=== PATIENT | female | born 1950 | race Caucasian/White ===

== ENCOUNTER 2021-05-31 15:07 | Emergency (ER) | payer MEDICARE, MEDICAID, SELFPAY ==
--- NOTE | ~2021-05-31 | XR_ITS ---
EXAMINATION: XR knee RT 2V DATE: 05/31/2021 16:27 INDICATION: Right knee pain TECHNIQUE: Two views of the right knee were obtained on three radiographs. COMPARISON: None. FINDINGS: Alignment is normal. No fracture or osteochondral lesion. There is mild tricompartmental os teoarthritis characterized by tiny marginal osteophytes. No joint effusion/synovitis. Soft tissues a re unremarkable. IMPRESSION: 1. No acute osseous abnormality. Reviewed, dictated and finalized at location B.
--- NOTE | 2021-05-31 16:39 | ED.LOWEXIN ---
HPI - Extremity Injury (Lower) General Stated Complaint: knee injury Source: patient and family History of Present Illness HPI Narrative: this is a 70-year-old female that presents with right knee pain posterior after she was walking and heard a pop in her right knee and now she is having a posterior knee pain with no calf discomfort no calf tenderness no calf swelling or redness. Has decreased range of motion in her right knee secondary to pain and inflammation. MD complaint: knee injury Onset (ago): day(s) Injury: Right: knee ( Painful posterior knee after she heard a pop) Place: home Severity: moderate Severity scale (1-10): 6 Relieving factors: NSAID Exacerbating factors: weight bearing and movement Context: walking Review of Systems Review of Systems: All systems reviewed & are unremarkable except as noted in HPI and below [facility] Past Medical History Medical History (Updated 05/31/21 @ 16:46 by Jonathan Flores MD) HTN (hypertension) Patient denies medical problems Exam Const: General: no acute distress Orientation/consciousness: patient oriented x3 HENMT: Head: normal to inspection Eyes: Conjunctivae: conjunctivae normal Pupils: Equal, round and reactive pupils present Neck: Neck: normal visual inspection, no lymphadenopathy and no meningeal signs Chest: Chest palpation & inspection: normal inspection of the chest Resp: Effort & Inspection: normal respiratory effort Auscultation: clear to auscultation bilaterally Cardio: Rate: regular rate GI: GI Palp: Yes Soft to palpation : General: Yes no CVA tenderness Urinary Catheter: Urinary Catheter: patent and draining Skin: General skin exam: normal color Rashes: no rashes Neuro: General: patient oriented x3 Extrem: Knee images: 1. tenderness posterior knee with palpation with no calf pain or swelling after she heard a pop. Course Course Emergency Course: X-rays reviewed with patient and family and Toradol was given with some improvement of her discomfort. Critical Care Time Critical Care Time Critical Care Time: No Discharge Plan Discharge Clinical Impression: Strain of knee and leg, right Qualifiers: Encounter type: initial encounter Qualified Code(s): S86.911A - Strain of unspecified muscle(s) and tendon(s) at lower leg level, right leg, initial encounter Patient Disposition: Home, Self-Care Condition: Stable Instructions: Antibiotic Form, Knee Pain (ED), Knee Sprain (ED) Additional Instructions: advised to rest, elevate leg while rest continue Ralph bandage, can take ibuprofen 600mg twice daily with meals times approximately 5 days and follow up with primary care physician for possible MRI. Follow-up/Referrals: Roly Lynch MD [Primary Care Provider] - Time of Disposition: 16:48
[2021-05-31] MEDS: KETOROLAC 30 MG/ML VIAL (*BKC) IM (16:57)
[2021-05-31 17:02] VITALS: BP 125/55; PULSE 75; RESP 20; TEMP 36.7; O2SAT 95
[2021-05-31 17:08] VITALS: PULSE 74; RESP 20; O2SAT 96
== END 2021-05-31 17:21 | disposition home or self-care (01) ==
PROVIDERS: Emergency Provider Emergency Medicine; PCP Internal Medicine
DX: S86.911A Strain of unspecified muscle(s) and tendon(s) at lower leg level, right leg, initial encounter (principal)
CPT/HCPCS: 73560; 96372; 99283; J1885

== ENCOUNTER 2022-09-19 09:39 | Outpatient (CLI) | payer MEDICARE, SELFPAY ==
--- NOTE | ~2022-09-19 | XR_ITS ---
Right Shoulder Technique: AP and scapular Y views were obtained. Clinical History: Pain Findings: No fracture or dislocation is seen. Osseous alignment is anatomic. Mild degenerative change of the acromioclavicular joint noted. Glenohumeral joint unremarkable. Soft tissues are unremarkable . Impression: Mild AC joint degenerative change. Reviewed, dictated and finalized at location . BARBER Impression: Mild AC joint degenerative change.
--- NOTE | ~2022-09-19 | XR_ITS ---
XR hip LT min 2V 09/19/2022 10:21 Indication: Left hip pain Procedure: 2 views left hip Comparison: No prior studies for comparison. Findings: There is mild osteoarthritis of the left hip. No fracture, subluxation or dislocation. No s ignificant soft tissue abnormality. Impression: 1: Mild osteoarthritis of the left hip. Reviewed, dictated and finalized at location L. UNTING OFFICE MANAGER Impression: 1: Mild osteoarthritis of the left hip.
--- NOTE | ~2022-09-19 | XR_ITS ---
Lumbosacral Spine: AP and lateral views Clinical History: Pain Findings: The normal lordotic curve is maintained. No fracture evident. Grade I anterolisthesis of L5 over S1 present. There is severe degenerative disc 9 throughout the lumbar spine. There is probable severe facet arthropathy throughout the lumbar spine. The sacroiliac joints are normally outlined. Impression: Advanced degenerative spondylosis, as noted above. No fracture. Grade 1 anterolisthesis of L5 over S1. Reviewed, dictated and finalized at location M. LOADING MACHINE OPERATOR Impression: Advanced degenerative spondylosis, as noted above. No fracture. Grade 1 anterolisthesis of L5 over S1.
== END 2022-09-19 09:40 | disposition home or self-care (01) ==
LOC: CHSIMG 09:43
PROVIDERS: PCP Internal Medicine; Visit Provider Internal Medicine
DX: M25.511 Pain in right shoulder (principal); M54.16 Radiculopathy, lumbar region; M43.06 Spondylolysis, lumbar region; M43.17 Spondylolisthesis, lumbosacral region; M16.12 Unilateral primary osteoarthritis, left hip
CPT/HCPCS: 72100; 73030; 73502

== ENCOUNTER 2023-05-19 11:21 | Outpatient (CLI) | payer MEDICARE, MEDICAID, SELFPAY ==
--- NOTE | ~2023-05-19 | XR_ITS ---
Clinical Indication: Upper respiratory infection PA and lateral views of the chest: Comparison: None Findings: The lungs are clear, without evidence of focal consolidation or pleural effusion. Cardiome diastinal silhouette is within normal limits. Bones and soft tissues are unremarkable. Impression: Normal chest. Reviewed, dictated and finalized at location . Impression: Normal chest.
== END 2023-05-19 11:22 | disposition home or self-care (01) ==
LOC: CHSIMG 11:24
PROVIDERS: PCP Internal Medicine; Visit Provider Nurse Practitioner Family
DX: J06.9 Acute upper respiratory infection, unspecified (principal)
CPT/HCPCS: 71046

== ENCOUNTER 2023-05-23 11:31 | Outpatient (CLI) | payer MEDICARE, MEDICAID, SELFPAY ==
[2023-05-23 11:56] LABS: Basophils Absolute Auto 0.05 K/mm3 (0.00-0.10); Basophils Percent Auto 0.6 % (0.0-1.0); Eosinophils Absolute Auto 0.22 K/mm3 (0.02-0.50); Eosinophils Percent Auto 2.5 % (1.0-6.0); Hematocrit 39.2 % (35.0-42.0); Hemoglobin 13.6 g/dL (11.7-13.8); Immature Granulocyte Absolute 0.07 K/mm3 (0.00-0.00); Immature Granulocyte Percent A 0.8 % (0.0-0.0); Lymphocytes Absolute Auto 1.58 K/mm3 (1.10-4.50); Lymphocytes Percent Auto 18.1 % (18.0-42.0); Mean Corpuscular HGB Conc 34.7 g/dL (32.0-36.0); Mean Corpuscular Hemoglobin 30.9 pg (27.0-31.0); Mean Corpuscular Volume 89.1 fL (78.0-102.0); Mean Platelet Volume 9.5 fl (9.2-11.8); Monocytes Absolute Auto 0.75 K/mm3 (0.10-0.90); Monocytes Percent Auto 8.6 % (2.0-11.0); Neutrophils Absolute Auto 6.1 K/mm3 (1.7-7.2); Neutrophils Percent Auto 69.4 % (50.0-70.0); Platelet Count Result 258 K/mm3 (150-420); Red Cell Distribution Width 12.6 % (11.6-14.4); White Blood Count 8.7 K/mm3 (4.8-10.8)
[2023-05-23 12:09] LABS: Appearance Urine Clear (Clear); Bilirubin Urine Negative (Negative); Blood Urine Negative (Negative); Color Urine Light Yellow (Yellow); Glucose Urine UA Negative (Negative); Ketones Urine Negative (Negative); Leukocyte Esterase Ur Negative (Negative); Nitrate Urine Negative (Negative); Protein Urine Negative (Negative); Specific Grav Ur <= 1.005 (1.010-1.020); Urobilinogen Urine 0.2 mg/dL (0.2-1.0)
[2023-05-23 12:11] LABS: Add Urine Microscopic? NO
[2023-05-23 12:40] LABS: Alanine Aminotransferase 28 U/L (14-59); Albumin Level 3.4 g/dL (3.4-5.0); Alkaline Phosphatase 106 U/L (46-116); Anion Gap 12 mmol/L (8-16); Aspartate Amino Transferase 14 U/L (15-37); Bilirubin,Total 0.6 mg/dL (0.00-1.00); Blood Urea Nitrogen 14 mg/dL (7-18); CRP 0.7 mg/dL (0.0-0.9); Calcium 9.8 mg/dL (8.5-10.1); Carbon Dioxide 27 mmol/L (21-32); Chloride 102 mmol/L (98-108); Cholesterol 157 mg/dL (0-200); Estimated Glomerular Filt Rate > 60; Glucose 105 mg/dL (70-99); HDL Direct 53 mg/dL (40-60); LDL Cholesterol Calculated 82 mg/dL (<130); Osmolality Calculated 292 mOsm/kg (285-295); Potassium 3.9 mmol/L (3.5-5.1); Sodium 141 mmol/L (136-145); Thyroid Stimulating Hormone 3.21 uIU/mL (0.36-3.74); Total Protein 6.5 g/dL (6.4-8.2); Triglycerides 110 mg/dL (0-150)
== END 2023-05-23 11:32 | disposition home or self-care (01) ==
LOC: CHSLAB 11:34
PROVIDERS: PCP Internal Medicine; Visit Provider Internal Medicine
DX: R05.9 Cough, unspecified (principal); I10 Essential (primary) hypertension; E78.5 Hyperlipidemia, unspecified
CPT/HCPCS: 36415; 80053; 80061; 81003; 84443; 85025; 86140

== ENCOUNTER 2023-12-29 10:35 | Outpatient (CLI) | payer MEDICARE, MEDICAID, SELFPAY ==
[2023-12-29 10:57] LABS: Basophils Absolute Auto 0.03 K/mm3 (0.00-0.10); Basophils Percent Auto 0.3 % (0.0-1.0); Eosinophils Absolute Auto 0.13 K/mm3 (0.02-0.50); Eosinophils Percent Auto 1.3 % (1.0-6.0); Hematocrit 41.1 % (35.0-42.0); Hemoglobin 14.1 g/dL (11.7-13.8); Immature Granulocyte Absolute 0.04 K/mm3 (0.00-0.00); Immature Granulocyte Percent A 0.4 % (0.0-0.0); Lymphocytes Absolute Auto 1.09 K/mm3 (1.10-4.50); Lymphocytes Percent Auto 11.3 % (18.0-42.0); Mean Corpuscular HGB Conc 34.3 g/dL (32-36); Mean Corpuscular Hemoglobin 29.9 pg (27.0-31.0); Mean Corpuscular Volume 87.3 fL (78.0-102.0); Mean Platelet Volume 9.7 fl (9.2-11.8); Monocytes Absolute Auto 0.48 K/mm3 (0.10-0.90); Neutrophils Absolute Auto 7.87 K/mm3 (1.70-7.20); Neutrophils Percent Auto 81.7 % (50.0-70.0); Platelet Count Result 282 K/mm3 (150-420); Red Blood Count 4.71 M/mm3 (4.20-5.40); Red Cell Distribution Width 12.4 % (11.6-14.4); White Blood Count 9.6 K/mm3 (4.8-10.8)
[2023-12-29 11:02] LABS: Appearance Urine Clear (Clear); Bilirubin Urine Negative (Negative); Blood Urine Negative (Negative); Color Urine Light Yellow (Yellow); Glucose Urine UA Negative (Negative); Ketones Urine Negative (Negative); Leukocyte Esterase Ur Negative (Negative); Nitrate Urine Negative (Negative); Protein Urine Negative (Negative); Specific Grav Ur <= 1.005 (1.010-1.020); Urobilinogen Urine 0.2 mg/dL (0.2-1.0); pH Urine 5.5 (5.0-8.0)
[2023-12-29 11:05] LABS: Add Urine Microscopic? NO
[2023-12-29 12:13] LABS: Alanine Aminotransferase 28 U/L (14-59); Albumin Level 3.8 g/dL (3.4-5.0); Alkaline Phosphatase 117 U/L (46-116); Anion Gap 11 mmol/L (4-12); Aspartate Amino Transferase 20 U/L (15-37); Bilirubin,Total 1.2 mg/dL (0.00-1.00); Blood Urea Nitrogen 12 mg/dL (7-18); Calcium 10.2 mg/dL (8.5-10.1); Carbon Dioxide 27 mmol/L (21-32); Chloride 100 mmol/L (98-108); Cholesterol 181 mg/dL (0-200); Estimated Glomerular Filt Rate > 60; Glucose 102 mg/dL (70-99); HDL Direct 73 mg/dL (40-60); LDL Cholesterol Calculated 87 mg/dL (<130); Osmolality Calculated 285 mOsm/kg (285-295); Potassium 3.7 mmol/L (3.5-5.1); Sodium 138 mmol/L (136-145); Thyroid Stimulating Hormone 1.93 uIU/mL (0.36-3.74); Total Protein 7.1 g/dL (6.4-8.2); Triglycerides 104 mg/dL (0-150)
== END 2023-12-29 10:36 | disposition home or self-care (01) ==
LOC: CHSLAB 10:38
PROVIDERS: PCP Internal Medicine; Visit Provider Internal Medicine
DX: I10 Essential (primary) hypertension (principal); E78.5 Hyperlipidemia, unspecified; M85.88 Other specified disorders of bone density and structure, other site
CPT/HCPCS: 36415; 80053; 80061; 81003; 84443; 85025

== ENCOUNTER 2023-12-30 12:43 | Outpatient (CLI) | payer MEDICARE, MEDICAID, SELFPAY ==
--- NOTE | ~2023-12-30 | DEXA_ITS ---
? Bone Density Report? Name:? RUBIO DARBY A Patient ID:??? [id number] Age:? 73 Sex:? Female Ethnicity:? White Date of : 1950 Indication: postmenopausal; screening for osteoporosis; prior fracture; Referring Provider: Roly Lynch Study: Bone densitometry was performed. Exam Date: December 30, 2023 Accession number: [id number] Bone Density: Region? BMD??? T-score? Z-score?? Classification AP Spine(L1, L2, L3)? 1.393??? 3.4?5.8? Normal Femoral Neck (Left)? 0.762?? -0.8? 1.3? Normal Total Hip (Left)? 0.928?? -0.1? 1.7? Normal Femoral Neck (Right)? 0.772?? -0.7? 1.4? Normal Total Hip (Right)? 0.908?? -0.3? 1.5? Normal Femoral Neck Mean? 0.767?? -0.7? 1.3? Normal Total Hip Mean? 0.918?? -0.2? 1.6? Normal World Health Organization criteria for BMD impression classify patients as: Normal (T-score at or above -1.0), Osteopenia (T-score between -1.0 and -2.5), or Osteoporosis (T-score at or below -2.5). 10-year Fracture Risk: FRAX not reported because: ? All T-scores for Spine Total, Hip Total, Femoral Neck at or above -1.0 Clinical Information Provided by Patient: Has had a low trauma fracture Patient maximum height was 62 Menopause Age: 45 No regular weight bearing exercise Does not regularly consume dairy products Drinks caffeinated beverages Onset of menses at age 12 Number of children 2 Impression: The patient has normal bone mass. The patient has risk factors, including: previous fracture. Discussion: BONE DENSITY IS ABOVE THE MINIMUM DESIRABLE LEVEL AT ALL SKELETAL SITES TESTED. This patient?s bone mineral density is above the minimum desirable level (T- score -1.0 or better) at all sites measured. The patient should follow a healthful lifestyle (good nutrition with adequate calcium and vitamin D, and appropriate weight-bearing exercise). Follow-Up: Consider repeating this study in 5 years or sooner if there is some new clinical indication. Reported by: Dr. Vishnu Vargas on 12/31/2023 9:16:00 AM. JEOVANY
== END 2023-12-30 12:44 | disposition home or self-care (01) ==
LOC: CHSIMG 12:44
PROVIDERS: PCP Internal Medicine; Visit Provider Internal Medicine
DX: Z78.0 Asymptomatic menopausal state (principal)
CPT/HCPCS: 77080

== ENCOUNTER 2025-03-14 14:31 | Outpatient (CLI) | payer MEDICARE, MEDICAID, SELFPAY ==
--- NOTE | ~2025-03-14 | XR_ITS ---
EXAMINATION: XR ankle RT min 3V DATE: 03/14/2025 14:52 INDICATION: Right ankle pain and swelling old fracture TECHNIQUE: 4 images of the right ankle were obtained. COMPARISON: None. FINDINGS: Severe narrowing of the tibiotalar joint. Sideplate and multiple screws in the lateral malleolus with out radiographic evidence for loosening. 3 orthopedic screws in the distal right tibia without radiog raphic evidence for loosening. No fracture. No dislocation. Soft tissue swelling about the right ankl e. Small plantar calcaneal spur. IMPRESSION: 1. No acute fracture. 2. Severe narrowing of the tibiotalar joint. 3. Hardware about the right ankle without radiographic evidence for loosening. 4. Soft tissue swelling about the right ankle. If symptoms persist or worsen, consider a short-term follow-up study or additional imaging for furthe r assessment. Reviewed, dictated and finalized at location A. IMPRESSION: 1. No acute fracture. 2. Severe narrowing of the tibiotalar joint. 3. Hardware about the right ankle without radiographic evidence for loosening. 4. Soft tissue swelling about the right ankle. If symptoms persist or worsen, consider a short-term follow-up study or additio nal imaging for further assessment.
== END 2025-03-14 14:32 | disposition home or self-care (01) ==
LOC: CHSIMG 14:34
PROVIDERS: PCP Internal Medicine; Visit Provider Internal Medicine
DX: M79.89 Other specified soft tissue disorders (principal)
CPT/HCPCS: 73610

== ENCOUNTER 2025-03-26 11:24 | Outpatient (CLI) | payer MEDICARE, MEDICAID, SELFPAY ==
--- NOTE | ~2025-03-26 | MR_ITS ---
EXAMINATION: MR lumbar spine wo con DATE: 03/26/2025 12:12 INDICATION: Low back pain radiating to the bilateral lower limbs. TECHNIQUE: Magnetic resonance imaging (MRI) of the lumbar spine was performed without intravenous contrast. Sequences included sagittal T2-weighted FSE, sagittal T2-weighted FS FSE, sagittal T1-weighted FSE, and axial T2-weighted FSE. COMPARISON: None FINDINGS: 12 degrees lumbar levoscoliosis. 2 mm retrolisthesis L1 on L2 and L2 on L3 and 4 mm anterolisthesis L5 on S1. Vertebral body heights are normal. There are fibrovascular degenerative endplate changes at L1-L2, L2-L3 and L5-S1. Marrow signal is otherwise normal. Severe disc height loss at T11-T12 and L4-L5. Moderate to severe disc height loss at T10-T11, T12-L1, L1-L2 and L2-L3. Moderate disc height loss at L3-L4 and L5-S1. There are annular fissures at T12- L1 through L5-S1. There are prominent epidural lipomatosis throughout the lumbar spine which contributes to multilevel severe central canal stenosis throughout the lumbar spine as will be detailed below. The conus medullaris terminates at T12. There is normal signal in the caudal spinal cord. Paravertebral soft tissues are unremarkable. The following disc levels are specifically discussed: T12-L1: Disc is bulging. There is mild bilateral facet joint osteoarthritis. There is moderate right and mild to moderate left neural foraminal stenosis. There is mild central canal stenosis. L1-L2: Disc is bulging. There is mild bilateral facet joint osteoarthritis. There is moderate bilateral neural foraminal stenosis. There is severe central canal stenosis. L2-L3: Disc is bulging. There is mild left and moderate right facet joint osteoarthritis. There is moderate bilateral neural foraminal stenosis. There is severe central canal stenosis. L3-L4: Disc is bulging. There is severe bilateral facet joint osteoarthritis. There is moderate to severe left and severe right neural foraminal stenosis. There is severe central canal stenosis without contribution from epidural lipomatosis at the level of the disc space. L4-L5: The disc does not extend beyond moderate-sized posterior endplate osteophytes. There is moderate bilateral facet joint osteoarthritis. There is moderate right and severe left neural foraminal stenosis. There is severe central canal stenosis. L5-S1: Disc is bulging. There is severe bilateral facet joint osteoarthritis. There is moderate left and mild to moderate right neural foraminal stenosis. There is severe central canal stenosis. IMPRESSION: 1. Severe lumbar and lower thoracic spondylosis which along with prominent epidural lipomatosis contributes to multilevel severe central canal stenosis from L1-L2 through L5-S1. There is also moderate and severe stenosis at multiple lumbar neural foramina as detailed above. Reviewed, dictated and finalized at location A. IMPRESSION: 1. Severe lumbar and lower thoracic spondylosis which along with prominent epid ural lipomatosis contributes to multilevel severe central canal stenosis from L 1-L2 through L5-S1. There is also moderate and severe stenosis at multiple lumb ar neural foramina as detailed above.
== END 2025-03-26 11:25 | disposition home or self-care (01) ==
PROVIDERS: PCP Internal Medicine; Visit Provider Nurse Practitioner Family
DX: M54.50 Low back pain, unspecified (principal); M43.06 Spondylolysis, lumbar region; M43.04 Spondylolysis, thoracic region; M48.061 Spinal stenosis, lumbar region without neurogenic claudication
CPT/HCPCS: 72148

== ENCOUNTER 2025-04-11 07:40 | Outpatient (CLI) | payer MEDICARE, MEDICAID, SELFPAY ==
--- NOTE | ~2025-04-11 | XR_ITS ---
EXAMINATION: XR ankle RT min 3V DATE: 04/11/2025 08:07 INDICATION: Pain in right ankle TECHNIQUE: 4 images of the right ankle were obtained. COMPARISON: 03/14/2025 FINDINGS: Soft tissue swelling about the right ankle. Side plate and orthopedic screws transfixing a healed fracture of the right tibia. Orthopedic screws are noted in the distal right tibia without radiographic evidence for loosening. Severe narrowing of the tibiotalar joints similar to the prior study. Moderate-sized plantar calcaneal spur. No displaced fracture. IMPRESSION: 1. Hardware is noted in the fibula and tibia without radiographic evidence for loosening. 2. Severe narrowing of the tibiotalar joint. 3. Soft tissue swelling about the right ankle. 4. Moderate-sized plantar calcaneal spur. If symptoms persist or worsen, consider a CT or MRI for further assessment. Reviewed, dictated and finalized at location Q.
== END 2025-04-11 07:41 | disposition home or self-care (01) ==
LOC: CHSIMG 07:44
PROVIDERS: PCP Internal Medicine; Visit Provider Orthopaedic Surgery
DX: M25.571 Pain in right ankle and joints of right foot (principal); R22.31 Localized swelling, mass and lump, right upper limb; M77.31 Calcaneal spur, right foot
CPT/HCPCS: 73610